=== PATIENT | female | born 1955 | race Caucasian/White ===

== ENCOUNTER 2023-08-13 11:54 | Observation (INO) | payer OTHER, MEDICARE ==
--- NOTE | 2023-08-13 12:53 | ED ---
Chest Pain HPI - General Source: patient, RN notes reviewed Mode of arrival: ambulatory Limitations: no limitations <Adam Pantoja - Last Filed: 08/13/23 12:52> - General Source: patient, RN notes reviewed Limitations: no limitations <Bartolo Benson - Last Filed: 08/13/23 18:16> - General Chief Complaint: Chest Pain Stated Complaint: Chest pain Time Seen by Provider: 08/13/23 12:52 - History of Present Illness Initial Comments: 68-year-old female sent emergency Department chief complaint of pressure in her upper chest, throat region. She states that started earlier this morning. She denies any significant cardiac history. She states she is able to eat and drink okay. Patient denies anything like this in the past denies any fevers or chills no cough or cold like symptoms. (Adam Pantoja) Patient is a pleasant 68-year-old female presenting to emergency department with concerns for upper chest/lower neck pressure. Onset of symptoms was around 9:30 this morning. Patient was having an emotionally upsetting phone call at the time. Discomfort lasted for hours and just recently started to improve, now resolved. No history of similar symptoms previously. No associated dyspnea, nausea, or diaphoresis. No leg pain or leg swelling. (Bartolo Benson) - Related Data Allergies Allergy/AdvReac Type Severity Reaction Status Date / Time No Known Allergies Allergy Verified 08/13/23 12:18 Review of Systems ROS Other: All systems not noted in ROS Statement are negative. <Adam Pantoja - Last Filed: 08/13/23 12:52> ROS Other: All systems not noted in ROS Statement are negative. Constitutional: Denies: fever Eyes: Denies: eye pain ENT: Reports: as per HPI. Denies: ear pain Respiratory: Denies: dyspnea Cardiovascular: Reports: as per HPI, chest pain Endocrine: Denies: fatigue Gastrointestinal: Denies: abdominal pain Genitourinary: Denies: urgency Musculoskeletal: Denies: back pain <Bartolo Benson - Last Filed: 08/13/23 18:16> ROS Statement: Those systems with pertinent positive or pertinent negative responses have been documented in the HPI. EKG Findings - EKG Results: EKG: interpreted by ERMD, sinus rhythm, normal axis, normal QRS, normal ST/T <Bartolo Benson - Last Filed: 08/13/23 18:16> Past Medical History Past Medical History: No Reported History History of Any Multi-Drug Resistant Organisms: None Reported Past Surgical History: No Surgical Hx Reported Past Psychological History: No Psychological Hx Reported Smoking Status: Former smoker Past Alcohol Use History: None Reported Past Drug Use History: None Reported <Adam Pantoja - Last Filed: 08/13/23 12:52> General Exam Limitations: no limitations <Adam Pantoja - Last Filed: 08/13/23 12:52> Limitations: no limitations General appearance: alert, in no apparent distress Head exam: Present: normocephalic Eye exam: Present: normal appearance ENT exam: Present: normal oropharynx Neck exam: Present: normal inspection Respiratory exam: Present: normal lung sounds bilaterally. Absent: stridor, chest wall tenderness Cardiovascular Exam: Present: regular rate, normal rhythm Expanded Peripheral pulses: 2+: Radial (R), Radial (L), Dorsalis Pedis (R), Dorsalis Pedis (L) GI/Abdominal exam: Present: soft. Absent: tenderness Extremities exam: Present: normal inspection. Absent: pedal edema, calf tenderness Neurological exam: Present: alert Psychiatric exam: Present: normal affect, normal mood Skin exam: Present: normal color <Bartolo Benson - Last Filed: 08/13/23 18:16> - General Exam Comments Initial Comments: Visual Physical Exam Vital signs reviewed General: Well-appearing, nontoxic, no acute distress. Head: Normocephalic, atraumatic Eyes: PERRLA, EOMI ENT: Airway patent Chest: Nonlabored breathing Skin: No visual rash, normal skin tone Neuro: Alert and oriented 3 Musculoskeletal: No gross abnormalities (Adam Pantoja) Course Vital Signs 08/13/23 08/13/23 08/13/23 12:19 14:49 14:55 Temperature 97.9 F Pulse Rate 111 H 70 Respiratory 16 20 20 Rate Blood Pressure 155/73 214/90 O2 Sat by Pulse 98 98 Oximetry 08/13/23 08/13/23 15:39 16:46 Temperature Pulse Rate 95 97 Respiratory 18 18 Rate Blood Pressure 194/106 189/101 O2 Sat by Pulse 96 95 Oximetry Chest Pain MDM <Adam Pantoja - Last Filed: 08/13/23 12:52> <Bartolo Benson - Last Filed: 08/13/23 18:16> - MDM I performed a quick note portion of this chart signed Adam BECERRA (Adam Pantoja) Was pt. sent in by a medical professional or institution (, [facility], [employer], urgent care, hospital, or intermediate...) When possible be specific @ -No Did you speak to anyone other than the patient for history (EMS, parent, family, police, friend...)? What history was obtained from this source @ -No Did you review nursing and triage notes (agree or disagree)? Why? @ -I reviewed and agree with nursing and triage notes Were old charts reviewed (outside hosp., previous admission, EMS record, old EKG, old radiological studies, urgent care reports/EKG's, intermediate records)? Report findings @ -No old charts were reviewed Differential Diagnosis (chest pain, altered mental status, abdominal pain women, abdominal pain men, vaginal bleeding, weakness, fever, dyspnea, syncope, headache, dizziness, GI bleed, back pain, seizure, CVA, palpatations, mental health, musculoskeletal)? @ -Differential Chest Pain: Stable Angina, Unstable Angina, STEMI, NSTEMI Aortic Dissection, Pneumothorax, Musculoskeletal, Esophageal Spasm GERD, Cholecystitis, Pancreatitis, Zoster, this is not meant to be an all-inclusive list. EKG interpreted by me (3pts min.). @ -As above X-rays interpreted by me (1pt min.). @ -Is x-ray shows no acute process CT interpreted by me (1pt min.). @ -CT chest without obvious embolism. Nodule. Questionable abdominal aorta changes U/S interpreted by me (1pt. min.). @ -None done What testing was considered but not performed or refused? (CT, X-rays, U/S, labs)? Why? @ -us abdominal aorta will be ordered What meds were considered but not given or refused? Why? @ -None Did you discuss the management of the patient with other professionals (professionals i.e. , [facility], [employer], lab, RT, psych nurse, social work associate, speech correction consultant, teacher, weapons officer, rn case manager hospice)? Give summary @ -Case was discussed with Dr. Stoll, who will admit covering hospital call. Was smoking cessation discussed for >3mins.? @ -No Was critical care preformed (if so, how long)? @ -No Were there social determinants of health that impacted care today? How? (Homelessness, low income, unemployed, alcoholism, drug addiction, transportation, low edu. Level, literacy, decrease access to med. care, senior care, rehab)? @ -No Was there de-escalation of care discussed even if they declined (Discuss DNR or withdrawal of care, Hospice)? DNR status @ -No What co-morbidities impacted this encounter? (DM, HTN, Smoking, COPD, CAD, C ancer, CVA, ARF, Chemo, Hep., AIDS, mental health diagnosis, sleep apnea, morbid obesity)? @ -None Was patient admitted / discharged? Hospital course, mention meds given and route, prescriptions, significant lab abnormalities, going to OR and other pertinent info. @ -Patient reevaluated and feeling better at this time. Patient did have some increase in chest discomfort that did improve symmetric question. Patient did have some dyspnea following computed tomography scan and was given medications with resolution of this. There is concern for ALLERGIC reaction to iodine dye. Patient updated regarding this. Patient will be admitted with cardiac consult. Admission orders written. Undiagnosed new problem with uncertain prognosis? @ -No Drug Therapy requiring intensive monitoring for toxicity (Heparin, Nitro, Insulin, Cardizem)? @ -No Were any procedures done? @ -No Diagnosis/symptom? @ -Chest pain, ALLERGIC reaction Acute, or Chronic, or Acute on Chronic? @ -Acute, acute Uncomplicated (without systemic symptoms) or Complicated (systemic symptoms)? @ -default Side effects of treatment? @ -No Exacerbation, Progression, or Severe Exacerbation? @ -No Poses a threat to life or bodily function? How? (Chest pain, USA, IA, pneumonia, PE, COPD, DKA, ARF, appy, cholecystitis, CVA, Diverticulitis, Homicidal, Suicidal, threat to staff... and all critical care pts) @ -No (Bartolo Benson) Disposition <Adam Pantoja - Last Filed: 08/13/23 12:52> Is patient prescribed a controlled substance at d/c from ED?: No Time of Disposition: 18:16 <Bartolo Benson - Last Filed: 08/13/23 18:16> Clinical Impression: Chest pain Disposition: ADMITTED IP TO THIS HOSP Referrals: None,Stated [Primary Care Provider] - 1-2 days
--- NOTE | 2023-08-13 13:41 | XR ---
EXAMINATION TYPE: XR chest 2V DATE OF EXAM: 08/13/2023 COMPARISON: 11/26/2011 CT HISTORY: 68-year-old female with chest pain TECHNIQUE: PA and lateral views FINDINGS: The cardiomediastinal silhouette, aorta, and pulmonary vasculature are within normal limits. Slight e ventration anterior right hemidiaphragm remains unchanged back to 2011. Lungs and pleural spaces are clear. IMPRESSION: No acute cardiopulmonary process.
[2023-08-13 15:00] LABS: Basophils % (A) 0 %; Eosinophils % (A) 0 %; HCT 44.1 % (34.0-46.0); HGB 14.2 gm/dL (11.4-16.0); Lymphocytes # (A) 4.1 k/uL (1.0-4.8); Lymphocytes % (A) 23 %; MCHC 32.3 g/dL (31.0-37.0); Mean Platelet Volume 7.8; Monocytes # (A) 0.8 k/uL (0-1.0); Monocytes % (A) 4 %; Neutrophils # (A) 12.8 k/uL (1.3-7.7); Neutrophils % (A) 72 %; Platelet Count 351 k/uL (150-450); RBC 4.91 m/uL (3.80-5.40); RDW 13.5 % (11.5-15.5); WBC 17.9 k/uL (3.8-10.6)
[2023-08-13] MEDS ORDERED: ASPIRIN 81 MG PO STA (15:03)
[2023-08-13 15:08] LABS: INR 0.9 (<1.2); Partial Thromboplastin Time 25.4 sec (22.0-30.0); Prothrombin Time 9.8 sec (10.0-12.5)
[2023-08-13 15:14] LABS: ALT 18 U/L (4-34); AST 18 U/L (14-36); African American GFR (CKD) >90 (>60 ml/min/1.73 sqM); Albumin 4.6 g/dL (3.5-5.0); Alkaline Phosphatase 105 U/L (38-126); Anion Gap 13 mmol/L; Blood Urea Nitrogen 13 mg/dL (7-17); Calcium 10.3 mg/dL (8.4-10.2); Carbon Dioxide 22 mmol/L (22-30); Chloride 105 mmol/L (98-107); Glucose 110 mg/dL (74-99); Magnesium 1.8 mg/dL (1.6-2.3); Non-African American GFR(CKD) 83 (>60 ml/min/1.73 sqM); Potassium 3.8 mmol/L (3.5-5.1); Sodium 140 mmol/L (137-145); Total Bilirubin 0.4 mg/dL (0.2-1.3); Total Protein 7.9 g/dL (6.3-8.2)
[2023-08-13 15:21] LABS: NT-Pro-B-Type Natriuretic Pept 162 pg/mL
[2023-08-13] MEDS: NITROGLYCERIN SL TABS 0.4 MG TAB SUBLINGUAL PRN ×3 (15:59→16:46)
[2023-08-13] MEDS ORDERED: methylPREDNISolone SOD SUCCI 125 MG/2 ML VIAL IV STA (17:12)
[2023-08-13] MEDS ORDERED: FAMOTIDINE 20 MG/2 ML VIAL IV STA (17:12)
[2023-08-13] MEDS ORDERED: diphenhydrAMINE 50 MG/ML 1 ML VIAL IVP STA (17:12)
--- NOTE | 2023-08-13 17:30 | CT ---
EXAMINATION TYPE: CT angio chest CT DLP: 384.8 mGycm, Automated exposure control for dose reduction was used. DATE OF EXAM: 08/13/2023 5:11 PM COMPARISON: CT 11/26/2011 CLINICAL INDICATION:Female, 68 years old with history of cp; chest pain TECHNIQUE/CONTRAST: CTA scan of the thorax is performed with IV Contrast, patient injected with 100 mL of Isovue 370, MIP images are created and reviewed these are created on a separate workstation.. FINDINGS: Pulmonary Artery: There is no evidence for a filling defect within the pulmonary vasculature to sugge st acute pulmonary embolism. The pulmonary artery is of normal size. Lungs/Pleura: No evidence of focal consolidation, pleural effusion or pneumothorax. Atelectasis withi n the left lung base lower lung versus small pulmonary nodule measuring 7 x 3 mm. Airway: Large airways are patent. Heart: Heart is mildly enlarged for size. There is moderate coronary artery atherosclerosis. Vasculature: No evidence of aortic aneurysm. Mediastinum: No gross evidence of adenopathy. Musculoskeletal: No acute osseous abnormalities, remote appearing left-sided rib fractures. Multileve l degeneration changes spine with osteophyte formation disc space narrowing. Soft Tissues: Unremarkable. Lower neck: No significant findings. Upper Abdomen: No significant findings. IMPRESSION: 1. 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 Consider ultrasound evaluation of the aorta throughout occlusion. 2. No evidence of pulmonary embolism. 3a. Left lower lung inferior lateral pulmonary nodule measuring 7 x 3 mm which is unchanged from 2012 and likely benign.
[2023-08-13] MEDS ORDERED: NITROGLYCERIN SL TABS 0.4 MG TAB SUBLINGUAL PRN (18:17)
--- NOTE | 2023-08-13 20:03 | US ---
EXAMINATION TYPE: US duplex aorta DATE OF EXAM: 08/13/2023 COMPARISON: CTA: Today CLINICAL INDICATION: Female, 68 years old with history of abnl ct; CT showing possible occlusion of a kiley TECHNIQUE: Multiple sonographic images of the abdominal aorta are obtained. FINDINGS: EXAM MEASUREMENTS: Abdominal Aorta: Proximal: 2.9 x 2.3 Mid: 2.4 x 2.5 Distal: 1.6 x 2.0 Bifurcation: Not well seen FLIGHT ENGINEER NOTES: There does appear to be plaque seen in the distal portion of the aorta, with minim al blood flow. There is no dilatation. IMPRESSION: Findings are thought to confirm that there is occlusion of the distal aorta. Multiple collaterals are seen on the same day CTA along the anterior abdominal wall. Vascular surgical consultation recommend ed.
[2023-08-13] MEDS: NITROGLYCERIN OINT 1 INCH/GM PACKET TOPICAL SCH (23:43)
--- NOTE | 2023-08-14 00:01 | P.HPIM ---
History of Present Illness H&P Date: 08/13/23 Patient is a 68-year-old female with a PMH of COPD, who hasn't seen a physician for the past several years, presents to the emergency room with complaints of upper chest discomfort and shortness of breath. The patient notes that she has had a lifelong lower neck and upper chest discomfort of occasional choking and shortness of breath for which she has seen multiple physicians previously. She notes however that the discomfort acutely worsened earlier today which prompted her to come to the emergency room. She denied experiencing fever, chills, cough, nausea, vomiting, abdominal pain, diarrhea. Reports a history of mild COPD for which she does not take any inhalers. She also denied experiencing lower extremity pain or weakness. In the emergency room a chest CTA revealed findings concerning for occlusion of the abdominal aorta with a left lower lung pulmonary nodule unchanged for the past 11 years and suspected benign with no evidence for pulmonary embolism. A follow-up vascular aortic ultrasound revealed an occlusion of the distal aorta with multiple collaterals with a vascular surgical consultation recommended. Laboratory evaluation was remarkable for troponin less than 0.012 and d-dimer 0.74 with WBC count 17.9. ED documentation reviewed and case discussed with ED provider. Review of systems: Pertinent positives and negatives as discussed in HPI, a complete review of systems was performed and all other systems are negative. Physical examination: Vital signs reviewed General: non toxic, no distress, appears at stated age, overweight Derm: no unusual rashes/lesions, warm Head: atraumatic, normocephalic, symmetric Eyes: EOMI, no lid lag, anicteric sclera, pupils equal round reactive to light ENT: Nose and ears atraumatic Neck: No cervical lymphadenopathy, trachea midline, supple Mouth: no lip lesion, mucus membranes moist Cardiovascular: S1S2 reg, no murmur, scant bilateral dorsalis pedis and popliteal pulses, warm feet, unable to assess capillary refill and feet due to onychomycosis, no edema Lungs: CTA bilateral, no rhonchi, no rales, no accessory muscle use Abdominal: soft, nontender to palpation, no guarding Ext: muscle strength 5 out of 5 in all 4 extremities grossly, no gross muscle atrophy, no contractures, Neuro: CN II-XI grossly intact, no gross focal neuro deficits Psych: Alert, oriented, appropriate affect Assessment: Chest pain, rule out ACS Aortic occlusion Leukocytosis, no sign of active infection at this time Imaging: In the emergency room a chest CTA revealed findings concerning for occlusion of the abdominal aorta with a left lower lung pulmonary nodule unchanged for the past 11 years and suspected benign with no evidence for pulmonary embolism. A follow-up vascular aortic ultrasound revealed an occlusion of the distal aorta with multiple collaterals with a vascular surgical consultation recommended. Data Review: Laboratory evaluation was remarkable for troponin less than 0.012 and d-dimer 0.74 with WBC count 17.9. Plan: Case reportedly discussed by ED provider with vascular surgery on consult who felt that the patient's occlusion is very likely chronic with no intervention recommended at this time Cardiology consulted Cardiac monitoring Trend troponin Continue with aspirin and statin. DVT prophylaxis: Lovenox subcu The patient is admitted with an anticipated less than 2 midnight stay for evaluation of chest pain CODE STATUS: Full Code Discussed with: Patient Anticipated discharge place: Home Past Medical History Past Medical History: No Reported History History of Any Multi-Drug Resistant Organisms: None Reported Past Surgical History: No Surgical Hx Reported Past Psychological History: No Psychological Hx Reported Smoking Status: Former smoker Past Alcohol Use History: None Reported Past Drug Use History: None Reported Medications and Allergies Home Medications Medication Instructions Recorded Confirmed Type Fexofenadine HCl [Sonia Allergy] 180 mg PO DAILY 08/13/23 08/13/23 History guaiFENesin-DM 600/30MG [Mucinex 1 tab PO Q12HR 08/13/23 08/13/23 History Dm] Allergies Allergy/AdvReac Type Severity Reaction Status Date / Time No Known Allergies Allergy Verified 08/13/23 20:37 Physical Exam Vitals: Vital Signs Temp Pulse Resp BP Pulse Ox 08/13/23 23:30 73 20 169/82 95 08/13/23 23:00 89 18 154/81 96 08/13/23 22:00 84 18 170/75 96 08/13/23 21:00 80 18 169/76 98 08/13/23 20:06 93 18 150/105 97 08/13/23 19:00 82 18 181/87 98 08/13/23 18:00 78 20 169/87 99 08/13/23 17:00 90 18 193/97 97 08/13/23 16:46 97 18 189/101 95 08/13/23 16:30 95 18 205/94 98 08/13/23 15:39 95 18 194/106 96 08/13/23 14:55 20 08/13/23 14:49 70 20 214/90 98 08/13/23 12:19 97.9 F 111 H 16 155/73 98 Intake and Output 08/13/23 08/13/23 08/14/23 14:59 22:59 06:59 Other: Weight 70.307 kg Results CBC & Chem 7: 08/13/23 12:52 08/13/23 12:52 Labs: Abnormal Lab Results - Last 24 Hours (Table) 08/13/23 08/13/23 08/13/23 Range/Units 12:52 12:52 12:52 WBC 17.9 H (3.8-10.6) k/uL Neutrophils # 12.8 H (1.3-7.7) k/uL PT 9.8 L (10.0-12.5) sec D-Dimer (<0.60) mg/L FEU Glucose 110 H (74-99) mg/dL Calcium 10.3 H (8.4-10.2) mg/dL 08/13/23 Range/Units 12:52 WBC (3.8-10.6) k/uL Neutrophils # (1.3-7.7) k/uL PT (10.0-12.5) sec D-Dimer 0.74 H (<0.60) mg/L FEU Glucose (74-99) mg/dL Calcium (8.4-10.2) mg/dL
[2023-08-14] MEDS: ATORVASTATIN 80 MG TAB PO SCH ×2 (00:25→19:59)
[2023-08-14] MEDS: NITROGLYCERIN OINT 1 INCH/GM PACKET TOPICAL SCH ×3 (06:16→18:56)
[2023-08-14] MEDS: ENOXAPARIN 40 MG/0.4 ML SYRINGE SQ SCH (08:11)
[2023-08-14] MEDS: ASPIRIN 81 MG PO SCH (08:11)
[2023-08-14] MEDS: LISINOPRIL-HCTZ 10-12.5 MG 1 EACH TAB PO SCH (08:45)
[2023-08-14] MEDS ORDERED: ASPIRIN 325 MG TAB PO SCH (09:00)
--- NOTE | 2023-08-14 09:33 | P.CRDCN ---
History of Present Illness Consult date: 08/14/23 Chief complaint: Chest discomfort History of present illness: This is a 68-year-old female patient with a past medical history significant for history of smoking and possibly hypertension. The patient never seen a physician in long time. She presented to the hospital complaining of chest discomfort started when she was talking to her daughter on the phone. The discomfort was in the middle of the chest as a dull with no radiation to the ar ms or neck or shoulders or back tawny seated symptoms of shortness of breath or dizziness or any feeling of heart racing or fluttering or presyncope or syncope. The discomfort lasted only for a few seconds. Beside that she reports no chest discomfort with exertion. She underwent further workup including troponin came in to be unremarkable and EKG showed sinus mechanism. Please note that her pres sure has been elevated and consistent was hypertension crisis. She was started on losartan hydrochlorothiazide combination. She is a slightly tachycardic and for that reason I'm going to add carvedilol to the current medical regimen. The computed tomography scan of the chest did not show any evidence off acute abnormalities but it did show possible occluded infrarenal aorta and currently she is undergoing investigation for that. Examination is remarkable for regular rhythm with a tachycardia and clear breathing sounds bilaterally and no lower extremity is edema and no pulses identified in the pedal arteries and also I hear a right carotid bruit Assessment Hypertension emergency Chest discomfort secondary to hypertension emergency. Severe CAD to be ruled out Peripheral arterial disease as described above History of smoking Plan Acute coronary event was ruled out Consider obtaining a stress test once the pressure improved and consider ruling out severe CAD Add carvedilol to the current medical regimen Further workup regarding the PAD Obtain an echocardiogram with Doppler Follow-up with the patient Past Medical History Past Medical History: No Reported History History of Any Multi-Drug Resistant Organisms: None Reported Past Surgical History: No Surgical Hx Reported Past Psychological History: No Psychological Hx Reported Smoking Status: Former smoker Past Alcohol Use History: None Reported Past Drug Use History: None Reported Medications and Allergies Home Medications Medication Instructions Recorded Confirmed Type Fexofenadine HCl [Sonia Allergy] 180 mg PO DAILY 08/13/23 08/13/23 History guaiFENesin-DM 600/30MG [Mucinex 1 tab PO Q12HR 08/13/23 08/13/23 History Dm] Allergies Allergy/AdvReac Type Severity Reaction Status Date / Time No Known Allergies Allergy Verified 08/13/23 20:37 Physical Exam Vitals: Vital Signs Temp Pulse Pulse Resp BP BP Pulse Ox 08/14/23 08:00 98 F 103 H 18 190/89 97 08/14/23 06:16 90 18 175/82 94 L 08/14/23 04:23 101 H 08/14/23 03:28 77 16 161/93 94 L 08/14/23 02:00 104 H 16 183/93 94 L 08/14/23 01:00 91 18 160/84 96 08/14/23 00:30 83 168/82 94 L 08/14/23 00:00 80 18 169/79 96 08/13/23 23:30 73 20 169/82 95 08/13/23 23:00 89 18 154/81 96 08/13/23 22:00 84 18 170/75 96 08/13/23 21:00 80 18 169/76 98 08/13/23 20:06 93 18 150/105 97 08/13/23 19:00 82 18 181/87 98 08/13/23 18:00 78 20 169/87 99 08/13/23 17:00 90 18 193/97 97 08/13/23 16:46 97 18 189/101 95 08/13/23 16:30 95 18 205/94 98 08/13/23 15:39 95 18 194/106 96 08/13/23 14:55 20 08/13/23 14:49 70 20 214/90 98 08/13/23 12:19 97.9 F 111 H 16 155/73 98 Results 08/13/23 12:52 08/13/23 12:52 Cardiac Enzymes 08/13/23 08/13/23 08/13/23 Range/Units 12:52 12:52 18:34 AST 18 (14-36) U/L Troponin I <0.012 <0.012 (0.000-0.034) ng/mL 08/13/23 Range/Units 21:59 AST (14-36) U/L Troponin I <0.012 (0.000-0.034) ng/mL Coagulation 08/13/23 Range/Units 12:52 PT 9.8 L (10.0-12.5) sec APTT 25.4 (22.0-30.0) sec CBC 08/13/23 Range/Units 12:52 WBC 17.9 H (3.8-10.6) k/uL RBC 4.91 (3.80-5.40) m/uL Hgb 14.2 (11.4-16.0) gm/dL Hct 44.1 (34.0-46.0) % Plt Count 351 (150-450) k/uL Comprehensive Metabolic Panel 08/13/23 Range/Units 12:52 Sodium 140 (137-145) mmol/L Potassium 3.8 (3.5-5.1) mmol/L Chloride 105 (98-107) mmol/L Carbon Dioxide 22 (22-30) mmol/L BUN 13 (7-17) mg/dL Creatinine 0.76 (0.52-1.04) mg/dL Glucose 110 H (74-99) mg/dL Calcium 10.3 H (8.4-10.2) mg/dL AST 18 (14-36) U/L ALT 18 (4-34) U/L Alkaline Phosphatase 105 (38-126) U/L Total Protein 7.9 (6.3-8.2) g/dL Albumin 4.6 (3.5-5.0) g/dL Current Medications Generic Name Dose Route Start Last Admin Trade Name Freq PRN Reason Stop Dose Admin Aspirin 81 mg 08/14/23 09:00 08/14/23 08:11 Aspirin 81 Mg PO 81 mg DAILY BRIDGETT Administration Atorvastatin Calcium 80 mg 08/14/23 00:00 08/14/23 00:25 Atorvastatin 80 Mg Tab PO 80 mg HS BRIDGETT Administration Enoxaparin Sodium 40 mg 08/14/23 09:00 08/14/23 08:11 Enoxaparin 40 Mg/0.4 Ml Syringe SQ 40 mg DAILY BRIDGETT Administration Lisinopril/HCTZ 1 each 08/14/23 09:00 08/14/23 08:45 Lisinopril-Hctz 10-12.5 Mg 1 Each Tab PO 1 each DAILY BRIDGETT Administration Nitroglycerin 0.4 mg 08/13/23 15:49 08/13/23 16:46 Nitroglycerin Sl Tabs 0.4 Mg Tab SUBLINGUAL 0.4 mg Q5M PRN Administration Chest Pain Nitroglycerin 1 inch 08/14/23 00:00 11/22/23 06:16 Nitroglycerin Oint 1 Inch/Gm Packet TOPICAL 1 inch Q6HR BRIDGETT Administration 08/13/23 12:52 08/13/23 12:52
[2023-08-14] MEDS: carvediloL 3.125 MG TAB PO SCH (09:47)
--- NOTE | 2023-08-14 09:49 | US ---
EXAMINATION TYPE: US arterial LE multi level DATE OF EXAM: 08/14/2023 7:49 AM CLINICAL INDICATION: Female, 68 years old with history of in am, occlusion; Occlusion. History of: Smoker: Previous Hypertension: No Diabetic: No Hyperlipidemia: No TIA/CVA: No Previous Vascular Surgery: No CAD: No CT: No Vascular Ulcers: None Claudication: No Gangrene: No Doppler Waveforms: Right: Biphasic Left: Biphasic Right Brachial Pressure: 204 Left Brachial Pressure: Not performed due to IV. Ankle-Brachial Indices: Right: 0.34 Left: 0.33 Toe Brachial Indices: Right: 0.21 Left: 0.15 IMPRESSION: Severe bilateral peripheral vascular disease by ankle brachial indices.
[2023-08-14 11:07] LABS: Chol/HDL Ratio 5.19 Ratio; LDL Cholesterol,Calculated 139.5 mg/dL (0.0-131.0)
--- NOTE | 2023-08-14 16:03 | P.GSCN ---
History of Present Illness Consult date: 08/14/23 History of present illness: Patient is a 68 year old female who presented to the ER due to concerns or complaints of having a feeling of someone choking her and cutting off her breathing. He discomfort was noted to be in the chest itself. Further workup was performed including computed tomography scan of the chest and in doing so was found to have infrarenal abdominal aortic occlusion. We will consult in this regard. The patient denies any lower extremity pain. She states typically she is able to ambulate without concern, occasionally she gets lower extremity pain but this is not routine. Overall she would say she has no complaints about her lower extremities. Past Medical History Past Medical History: No Reported History History of Any Multi-Drug Resistant Organisms: None Reported Past Surgical History: No Surgical Hx Reported Past Psychological History: No Psychological Hx Reported Smoking Status: Former smoker Past Alcohol Use History: None Reported Past Drug Use History: None Reported Medications and Allergies Home Medications Medication Instructions Recorded Confirmed Type Fexofenadine HCl [Sonia Allergy] 180 mg PO DAILY 08/13/23 08/13/23 History guaiFENesin-DM 600/30MG [Mucinex 1 tab PO Q12HR 08/13/23 08/13/23 History Dm] Allergies Allergy/AdvReac Type Severity Reaction Status Date / Time No Known Allergies Allergy Verified 08/13/23 20:37 Surgical - Exam Vital Signs Temp Pulse Resp BP Pulse Ox 97.9 F 111 H 16 155/73 98 08/13/23 12:19 08/13/23 12:19 08/13/23 12:19 08/13/23 12:19 08/13/23 12:19 Physical is a pleasant cooperative female in no acute distress. Normocephalic, atraumatic, extraocular motion intact. Heart appears regular. Lungs are clear. Abdomen is soft. Extremity show no clubbing, cyanosis or edema. No palpable pedal pulses. Bilateral lower excision was are warm. Mildly delayed capillary refill. No wounds Results Imaging is reviewed, CT of the chest is reviewed. There is occlusion of the infrarenal abdominal aorta at the level of the renal takeoff bilaterally. This is consistent with the aortoiliac ultrasound. On lower extremity arterial Doppler KANIKA bilaterally of 0.3 with essentially biphasic appearing waveforms - Labs 08/13/23 12:52 08/13/23 12:52 Abnormal Lab Results - Last 24 Hours (Table) 08/13/23 Range/Units 12:52 Triglycerides 219.00 H (0.00-149.00) mg/dL Cholesterol 227.00 H (0.00-200.00) mg/dL LDL Cholesterol, Calc 139.5 H (0.0-131.0) mg/dL VLDL Cholesterol, Calc 43.80 H (5.00-40.00) mg/dL Diabetes panel 08/13/23 Range/Units 12:52 Triglycerides 219.00 H (0.00-149.00) mg/dL HDL Cholesterol 43.70 (40.00-60.00) mg/dL Assessment and Plan Assessment: Distal aortic occlusion, chronic Plan: On exertion was had with the patient guarding the results and findings. At this time there is nothing acute causing concern for need for intervention. Discussed that as an outpatient we may go forward with further evaluation and workup, if patient has reviewed changes, would recommend CT angiogram with tameka ateral lower extremities with runoffs however this time it is unnecessary given patient is asymptomatic and findings are all consistent with chronic occlusion. Her extremities appear relatively well perfused and are warm. We'll plan to see her as an outpatient.
--- NOTE | 2023-08-14 16:32 | P.PN ---
Subjective Progress Note Date: 08/14/23 Hospital Course: 68-year-old female with a PMH of COPD, who hasn't seen a physician for the past several years, presents to the emergency room with complaints of upper chest discomfort and shortness of breath. In the emergency room a chest CTA revealed findings concerning for occlusion of the abdominal aorta with a left lower lung pulmonary nodule unchanged for the past 11 years and suspected benign with no evidence for pulmonary embolism. A follow-up vascular aortic ultrasound rev ealed an occlusion of the distal aorta with multiple collaterals with a vascular surgical consultation recommended. Laboratory evaluation was remarkable for troponin less than 0.012 and d-dimer 0.74 with WBC count 17.9. Cardiology consulted. Subjective: Patient seen and examined at bedside. No acute events overnight. She is slightly hypertensive. Pertinent positives and negatives as discussed above, a complete review of systems was performed and all other systems are negative. Vitals Signs Reviewed. General: nontoxic, no distress, appears at stated age Derm: warm, dry Head: atraumatic, normocephalic, symmetric Eyes: EOMI, no lid lag, anicteric sclera Mouth: no lip lesion, mucus membranes moist Cardiovascular: S1S2 reg, no murmur Lungs: CTA bilateral, no rhonchi, no rales , no accessory muscle use Abdominal: soft, nontender to palpation, no guarding, no appreciable organomeg ramos Ext: no gross muscle atrophy, no edema, no contractures Neuro: CN II-XI grossly intact, no focal neuro deficits Psych: Alert, oriented, appropriate affect Data Reviewed Today: Pertinent Labs: Troponin negative 3, LDL 139, total cholesterol 227 Imaging: Lower extremity Dopplers shows peripheral vascular disease severe bilaterally Assessment and Plan: Atypical chest discomfort Dyspnea Chronic aortic occlusion Leukocytosis Severe peripheral arterial disease Hypertension Dyslipidemia -Cardiology note reviewed, recommending stress test and echocardiogram -Patient started on aspirin 81 mg, atorvastatin 80 mg, carvedilol 3.125 daily, lisinopril and hydrochlorothiazide -Vascular surgery note reviewed, outpatient follow-up for aortic occlusion and severe peripheral arterial disease -Repeat CBC tomorrow DVT ppx: Lovenox Code status: Full code Anticipated discharge place: Pending clinical course Anticipated discharge time: Pending clinical course Objective - Vital Signs Vital signs: Vital Signs Temp 98 F 08/14/23 08:00 Pulse 92 08/14/23 15:50 Resp 16 08/14/23 15:50 BP 182/76 08/14/23 15:50 Pulse Ox 96 08/14/23 15:50 FiO2 Intake & Output 08/13/23 08/14/23 08/14/23 18:59 06:59 18:59 Intake Total 540 Balance 540 Weight 70.307 kg Intake: Oral 540 Other: # Voids 4 - Labs CBC & Chem 7: 08/13/23 12:52 08/13/23 12:52 Labs: Abnormal Lab Results - Last 24 Hours (Table) 08/13/23 Range/Units 12:52 Triglycerides 219.00 H (0.00-149.00) mg/dL Cholesterol 227.00 H (0.00-200.00) mg/dL LDL Cholesterol, Calc 139.5 H (0.0-131.0) mg/dL VLDL Cholesterol, Calc 43.80 H (5.00-40.00) mg/dL
[2023-08-15] MEDS: NITROGLYCERIN OINT 1 INCH/GM PACKET TOPICAL SCH ×2 (01:08→05:30)
[2023-08-15 06:10] LABS: Basophils # (A) 0.1 k/uL (0-0.2); Basophils % (A) 0 %; Eosinophils # (A) 0.1 k/uL (0-0.7); Eosinophils % (A) 1 %; HCT 45.6 % (34.0-46.0); HGB 14.9 gm/dL (11.4-16.0); Lymphocytes # (A) 4.9 k/uL (1.0-4.8); Lymphocytes % (A) 27 %; MCH 29.7 pg (25.0-35.0); MCHC 32.7 g/dL (31.0-37.0); MCV 90.7 fL (80.0-100.0); Mean Platelet Volume 8.1; Monocytes % (A) 6 %; Neutrophils # (A) 12.1 k/uL (1.3-7.7); Neutrophils % (A) 66 %; Platelet Count 343 k/uL (150-450); RBC 5.03 m/uL (3.80-5.40); WBC 18.4 k/uL (3.8-10.6)
[2023-08-15 06:29] LABS: ALT 18 U/L (4-34); AST 33 U/L (14-36); African American GFR (CKD) 83 (>60 ml/min/1.73 sqM); Albumin 4.3 g/dL (3.5-5.0); Albumin/Globulin Ratio 1.3; Alkaline Phosphatase 98 U/L (38-126); Anion Gap 12 mmol/L; Blood Urea Nitrogen 21 mg/dL (7-17); Calcium 9.9 mg/dL (8.4-10.2); Carbon Dioxide 22 mmol/L (22-30); Chloride 103 mmol/L (98-107); Globulin 3.3 g/dL; Glucose 111 mg/dL (74-99); Non-African American GFR(CKD) 72 (>60 ml/min/1.73 sqM); Potassium 3.9 mmol/L (3.5-5.1); Sodium 137 mmol/L (137-145); Total Bilirubin 0.6 mg/dL (0.2-1.3); Total Protein 7.6 g/dL (6.3-8.2)
[2023-08-15 07:51] VITALS: BP 137/70; RESP 16; TEMP 98
[2023-08-15] MEDS: LISINOPRIL-HCTZ 10-12.5 MG 1 EACH TAB PO SCH (08:18)
[2023-08-15] MEDS: ENOXAPARIN 40 MG/0.4 ML SYRINGE SQ SCH (08:18)
[2023-08-15] MEDS: ASPIRIN 81 MG PO SCH (08:18)
[2023-08-15] MEDS: carvediloL 3.125 MG TAB PO SCH (08:18)
[2023-08-15 09:30] VITALS: PULSE 88
--- NOTE | 2023-08-15 10:53 | P.PN ---
Subjective Progress Note Date: 08/15/23 Principal diagnosis: Chest pain This is a 68-year-old female patient with a past medical history significant for history of smoking and possibly hypertension. The patient never seen a physician in long time. She presented to the hospital complaining of chest discomfort started when she was talking to her daughter on the phone. The discomfort was in the middle of the chest as a dull with no radiation to the arms or neck or shoulders or back tawny seated symptoms of shortness of breath or dizziness or any feeling of heart racing or fluttering or presyncope or syncope. The discomfort lasted only for a few seconds. Beside that she reports no chest discomfort with exertion. She underwent further workup including troponin came in to be unremarkable and EKG showed sinus mechanism. Please note that her pressure has been elevated and consistent was hypertension crisis. She was started on losartan hydrochlorothiazide combination. She is a slightly tachycardic and for that reason I'm going to add carvedilol to the current medical regimen. The computed tomography scan of the chest did not show any evidence off acute abnormalities but it did show possible occluded infrarenal aorta and currently she is undergoing investigation for that. Examination is remarkable for regular rhythm with a tachycardia and clear breathing sounds bilaterally and no lower extremity is edema and no pulses identified in the pedal arteries and also I hear a right carotid bruit August [id number] The patient was seen and evaluated this morning which is chest pain-free. The pressure has been under better control on the current medical regimen including lisinopril/heart I as well as carvedilol. The aortic occlusion has been addressed by the vascular surgery service. A stress sestamibi to be done but unfortunately can't be done over the weekend/0.8. From the cardiovascular s tandpoint of view, the patient potentially can be discharged home and she will be seen in the office for further cardiac workup. Examination is remarkable for regular rhythm with clear breathing sounds bilaterally and no edema in the lower extremities Assessment Hypertension emergency Chest discomfort secondary to hypertension emergency. Severe CAD to be ruled out Peripheral arterial disease as described above History of smoking Plan Acute coronary event was ruled out The patient can be discharged home Objective - Vital Signs Vital signs: Vital Signs Temp 98.0 F 08/15/23 07:05 Pulse 88 08/15/23 08:00 Resp 16 08/15/23 08:00 BP 137/70 08/15/23 07:05 Pulse Ox 98 08/15/23 07:48 FiO2 Intake & Output 08/14/23 08/15/23 08/15/23 18:59 06:59 18:59 Intake Total 540 Balance 540 Weight 70.307 kg Intake: Oral 540 Other: # Voids 4 1 - Labs CBC & Chem 7: 08/15/23 05:53 08/15/23 05:53 Labs: Abnormal Lab Results - Last 24 Hours (Table) 08/13/23 08/15/23 08/15/23 Range/Units 12:52 05:53 05:53 WBC 18.4 H (3.8-10.6) k/uL Neutrophils # 12.1 H (1.3-7.7) k/uL Lymphocytes # 4.9 H (1.0-4.8) k/uL BUN 21 H (7-17) mg/dL Glucose 111 H (74-99) mg/dL Triglycerides 219.00 H (0.00-149.00) mg/dL Cholesterol 227.00 H (0.00-200.00) mg/dL LDL Cholesterol, Calc 139.5 H (0.0-131.0) mg/dL VLDL Cholesterol, Calc 43.80 H (5.00-40.00) mg/dL
--- NOTE | 2023-08-15 11:40 | P.DS ---
Providers Date of admission: 08/13/23 18:18 Expected date of discharge: 08/15/23 Attending physician: Tristen Issa MD Consults: 08/13/23 18:17 Consult Physician Urgent Consulting Provider: Jean Thayer Consult Reason/Comments: cp Do you want consulting provider notified?: Yes 08/13/23 21:06 Consult Physician Urgent Consulting Provider: Saravanan Burrows Consult Reason/Comments: arterial occlusion Do you want consulting provider notified?: Already Contacted Primary care physician: Stated None Hospital Course: Discharge Diagnosis: Atypical chest discomfort Dyspnea Chronic aortic occlusion Leukocytosis Severe asymptomatic peripheral arterial disease Hypertension Dyslipidemia Former smoker Hospital Course: 68-year-old female with a PMH of COPD, who hasn't seen a physician for the past several years, presents to the emergency room with complaints of upper chest discomfort and shortness of breath. In the emergency room a chest CTA revealed findings concerning for occlusion of the abdominal aorta with a left lower lung pulmonary nodule unchanged for the past 11 years and suspected benign with no evidence for pulmonary embolism. A follow-up vascular aortic ultrasound revealed an occlusion of the distal aorta with multiple collaterals with a vascular surgical consultation recommended. Risk for surgery recommending outpatient follow-up Laboratory evaluation was remarkable for troponin less than 0.012 and d-dimer 0.74 with WBC count 17.9. Cardiology consulted. Chest pain has resolved. ACS ruled out. Outpatient follow-up with cardiology. She also has neutrophilic predominant leukocytosis, will need follow-up outpatient. No acute signs or symptoms of infection. Patient seen and examined at bedside. Vital signs reviewed and stable. General: nontoxic, no distress, appears at stated age Derm: warm, dry Head: atraumatic, normocephalic, symmetric Eyes: EOMI, no lid lag, anicteric sclera Mouth: no lip lesion, mucus membranes moist Cardiovascular: S1S2 reg, no murmur Lungs: CTA bilateral, no rhonchi, no rales , no accessory muscle use Abdominal: soft, nontender to palpation, no guarding, no appreciable organomegaly Ext: no gross muscle atrophy, no edema, no contractures Neuro: CN II-XI grossly intact, no focal neuro deficits Psych: Alert, oriented, appropriate affect A total of 36 minutes of time were spent preparing this complex discharge summary. Patient was discharged on 08/15/23 at 1139. Patient Condition at Discharge: Stable Plan - Discharge Summary New Discharge Prescriptions: New carvediloL [Coreg] 3.125 mg PO DAILY #60 tab Aspirin [Adult Low Dose Aspirin EC] 81 mg PO DAILY #90 tab Atorvastatin [Lipitor] 80 mg PO HS #60 tab Lisinopril-Hctz 10-12.5 mg [Zestoretic 10-12.5] 1 each PO DAILY #60 tab Continue guaiFENesin-DM 600/30MG [Mucinex Dm] 1 tab PO Q12HR Fexofenadine HCl [Sonia Allergy] 180 mg PO DAILY Discharge Medication List Fexofenadine HCl [Sonia Allergy] 180 mg PO DAILY 08/13/23 [History] guaiFENesin-DM 600/30MG [Mucinex Dm] 1 tab PO Q12HR 08/13/23 [History] Aspirin [Adult Low Dose Aspirin EC] 81 mg PO DAILY #90 tab 08/15/23 [Rx] Atorvastatin [Lipitor] 80 mg PO HS #60 tab 08/15/23 [Rx] Lisinopril-Hctz 10-12.5 mg [Zestoretic 10-12.5] 1 each PO DAILY #60 tab 08/15/23 [Rx] carvediloL [Coreg] 3.125 mg PO DAILY #60 tab 08/15/23 [Rx] Follow up Appointment(s)/Referral(s): Jean Thayer MD [STAFF PHYSICIAN] - 1 Week Tamiko Andrade DO [STAFF PHYSICIAN] - 1 Week None,Stated [Primary Care Provider] - 1-2 days Patient Instructions/Handouts: Chest Pain (DC), Peripheral Vascular Disease (DC), Chronic Hypertension (DC), Hyperlipidemia (DC), Mediterranean Diet (DC) Activity/Diet/Wound Care/Special Instructions: Please see PCP, cardiology, and vascular surgery. Discharge Disposition: HOME SELF-CARE
--- NOTE | 2023-08-15 14:04 | CA ---
Transthoracic Echo Report Name: Breanne Madrigal Age: 68 Gender: F : 1955 Exam Date: 08/14/2023 14:01 Exam Location: [facility] Ht (in): 64 Wt (lb): 155 Ordering Physician: Jean Thayer MD ([id number]) Attending/Referring Phys: Manager Mobile Pamela Matthews RDCS Procedure CPT: Indications: Chest Pain Cardiac Hx: Technical Quality: Fair Contrast 1: Total Dose (mL): Contrast 2: Total Dose (mL): MEASUREMENTS (Male / Female) Normal Values 2D ECHO LV Diastolic Diameter PLAX 2.8 cm 4.2 - 5.9 / 3.9 - 5.3 cm LV Systolic Diameter PLAX 2.2 cm IVS Diastolic Thickness 1.4 cm 0.6 - 1.0 / 0.6 - 0.9 cm LVPW Diastolic Thickness 1.4 cm 0.6 - 1.0 / 0.6 - 0.9 cm LV Relative Wall Thickness 1.0 RV Internal Dim ED PLAX 2.8 cm LA Volume 30.3 cm??? 18 - 58 / 22 - 52 cm??? LA Volume Index 16.9 cm???/m??? 16 - 28 cm???/m??? M-MODE Aortic Root Diameter MM 3.0 cm LA Systolic Diameter MM 2.9 cm LA Ao Ratio MM 1.0 AV Cusp Separation MM 1.4 cm DOPPLER AV Peak Velocity 127.9 cm/s AV Peak Gradient 6.5 mmHg AV Mean Velocity 84.6 cm/s AV Mean Gradient 3.2 mmHg AV Velocity Time Integral 24.2 cm LVOT Peak Velocity 89.6 cm/s LVOT Peak Gradient 3.2 mmHg LVOT Velocity Time Integral 19.5 cm MV Area PHT 4.8 cm??? Mitral E Point Velocity 53.5 cm/s Mitral A Point Velocity 102.3 cm/s Mitral E to A Ratio 0.5 MV Deceleration Time 157.9 ms MV E' Velocity 5.9 cm/s Mitral E to MV E' Ratio 9.1 FINDINGS Left Ventricle Moderately increased left ventricular wall thickness. Left ventricular cavity size normal. Normal left ventricular systolic function with no obvious regional wall motion abnormalities. Left ventricular ejection fraction is estimated at 55-60 %. Right Ventricle Normal right ventricular size and function. Right ventricular systolic pressure within normal limits. Right Atrium Normal right atrial size. Left Atrium Normal left atrial size. Mitral Valve Mild mitral annular calcification. Trace to mild mitral regurgitation. Aortic Valve Trileaflet aortic valve. No aortic valve stenosis or regurgitation. Tricuspid Valve Structurally normal tricuspid valve. Trace to mild tricuspid regurgitation. Pulmonic Valve Trace pulmonic regurgitation. Pericardium No pericardial effusion. Aorta Normal size aortic root and proximal ascending aorta. CONCLUSIONS Technically difficult study Normal LV systolic function Previewed by: Dr. Jean Thayer MD (Electronically Signed) Final Date: 15 August 2023 14:03
== END 2023-08-15 12:51 | disposition home or self-care (01) ==
LOC: EC 11:54 → 6NMEDSUR 18:18 → 3SCARD 20:43 → 5NMEDONC 08-14 10:11 → 4SSUR 08-14 15:26 → 6NMEDSUR 08-14 15:45
PROVIDERS: ADMIT Family Medicine; ATTEND Family Medicine
DX: R07.89 Other chest pain (principal); I16.1 Hypertensive emergency; J44.9 Chronic obstructive pulmonary disease, unspecified; I70.0 Atherosclerosis of aorta; I73.9 Peripheral vascular disease, unspecified; R00.0 Tachycardia, unspecified; I10 Essential (primary) hypertension; E78.5 Hyperlipidemia, unspecified; R91.1 Solitary pulmonary nodule; D72.829 Elevated white blood cell count, unspecified; Z79.899 Other long term (current) drug therapy; Z87.891 Personal history of nicotine dependence
CPT/HCPCS: 96372 ×2; 96374; 96375; 99285; 36415; 94760; 93005 ×2; 93306; 85379; 83880; 80061; 80053 ×2; 83735; 84484; 85025 ×2; 85610; 85730; 71046; 93923; 93979; 71275; G0378 ×6; J1200; J2930; J1650 ×2; J3490; Q9967

== ENCOUNTER 2024-01-10 13:30 | Emergency (ER) | payer MEDICARE, OTHER ==
--- NOTE | 2024-01-10 14:15 | ED ---
Fall HPI - General Chief Complaint: Fall Stated Complaint: Fall on thinner-R ankle injury Time Seen by Provider: 01/10/24 14:13 Source: patient Mode of arrival: wheelchair Limitations: physical limitation - History of Present Illness Initial Comments: 68-year-old female presenting to the ER with chief complaint of a fall. Patient states she was taking out her trash downstairs last night and accidentally missed a step. She states her right ankle went behind her and she landed on her right knee. She is endorsing pain to right ankle especially with walking. She does not normally ambulate with a cane but is currently doing it due to pain. Denies any paresthesias. Denies head injury, loss consciousness. 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 She took an [id number] ibuprofen prior to arrival for pain control. No other injuries or complaints at this time. Denies any dizziness, lightheadedness, chest pain, shortness of breath prior to fall. - Related Data Home Medications Medication Instructions Recorded Confirmed Fexofenadine HCl [Sonia Allergy] 180 mg PO DAILY 08/13/23 08/13/23 guaiFENesin-DM 600/30MG [Mucinex 1 tab PO Q12HR 08/13/23 08/13/23 Dm] Previous Rx's Medication Instructions Recorded Aspirin [Adult Low Dose Aspirin EC] 81 mg PO DAILY #90 tab 08/15/23 Atorvastatin [Lipitor] 80 mg PO HS #60 tab 08/15/23 Lisinopril-Hctz 10-12.5 mg 1 each PO DAILY #60 tab 08/15/23 [Zestoretic 10-12.5] carvediloL [Coreg] 3.125 mg PO DAILY #60 tab 08/15/23 HYDROcodone/APAP 5-325MG [[place] 5] 1 each PO Q6HR PRN #12 tab 01/10/24 Allergies Allergy/AdvReac Type Severity Reaction Status Date / Time No Known Allergies Allergy Verified 01/10/24 13:44 Review of Systems ROS Statement: Those systems with pertinent positive or pertinent negative responses have been documented in the HPI. ROS Other: All systems not noted in ROS Statement are negative. Past Medical History Past Medical History: No Reported History History of Any Multi-Drug Resistant Organisms: None Reported Past Surgical History: No Surgical Hx Reported Past Psychological History: No Psychological Hx Reported Smoking Status: Former smoker Past Alcohol Use History: None Reported Past Drug Use History: None Reported General Exam Limitations: no limitations General appearance: alert, in no apparent distress Head exam: Present: atraumatic, normocephalic, normal inspection Respiratory exam: Present: normal lung sounds bilaterally. Absent: respiratory distress, wheezes, rales, rhonchi, stridor Cardiovascular Exam: Present: regular rate, normal rhythm, normal heart sounds. Absent: systolic murmur, diastolic murmur, rubs, gallop, clicks Extremities exam: Present: tenderness (Right lateral malleolus with ecchymosis and edema. Dorsalis pedis pulse 2+. Sensation intact. Ecchymosis and edema to second MTP joint.) Neurological exam: Present: alert, oriented X3, CN II-XII intact Skin exam: Present: warm, dry, intact, normal color. Absent: rash Course Vital Signs 01/10/24 01/10/24 01/10/24 13:39 13:44 16:02 Temperature 97.8 F 98.1 F Pulse Rate 80 80 Respiratory 16 99 H Rate Blood Pressure 93/61 119/69 106/68 O2 Sat by Pulse 98 99 Oximetry Procedures - Orthopedic Splinting/Casting Injury #1 Side: right Lower Extremity Injury Location: ankle Lower Extremity Immobilizer: posterior splint, stirrup splint Other Orthopedic Equipment: crutches Medical Decision Making - Medical Decision Making Was pt. sent in by a medical professional or institution (, [facility], [employer], urgent care, hospital, or senior care...) When possible be specific @ -No Did you speak to anyone other than the patient for history (EMS, parent, family, police, friend...)? What history was obtained from this source @ -No Did you review nursing and triage notes (agree or disagree)? Why? @ -I reviewed and agree with nursing and triage notes Were old charts reviewed (outside hosp., previous admission, EMS record, old EKG, old radiological studies, urgent care reports/EKG's, senior care records)? Report findings @ -No old charts were reviewed Differential Diagnosis (chest pain, altered mental status, abdominal pain women, abdominal pain men, vaginal bleeding, weakness, fever, dyspnea, syncope, headache, dizziness, GI bleed, back pain, seizure, CVA, palpatations, mental health, musculoskeletal)? @ -Differential Musculoskeletal: Muscular strain, contusion, ligament sprain, fracture, arthritis, septic arthritis, bursitis, cellulitis, muscle spasm, nerve compression, DVT, arterial occlusion, herpes zoster, electrolyte abnormality, tumor.... This is not meant to be in all inclusive list EKG interpreted by me (3pts min.). @ -None X-rays interpreted by me (1pt min.). @ -Right ankle x-ray interpreted me significant for distal fibular fracture with extension of the tibiotalar joint. CT interpreted by me (1pt min.). @ -None done U/S interpreted by me (1pt. min.). @ -None done What testing was considered but not performed or refused? (CT, X-rays, U/S, labs)? Why? @ -None What meds were considered but not given or refused? Why? @ -None Did you discuss the management of the patient with other professionals (professionals i.e. , PA, [employer], lab, RT, psych nurse, oncology social worker, head baggage porter, teacher, public service officer, tax manager cpa)? Give summary @ -No Was smoking cessation discussed for >3mins.? @ -No Was critical care preformed (if so, how long)? @ -No Were there social determinants of health that impacted care today? How? (Homelessness, low income, unemployed, alcoholism, drug addiction, transportation, low edu. Level, literacy, decrease access to med. care, residential, rehab)? @ -No Was there de-escalation of care discussed even if they declined (Discuss DNR or withdrawal of care, Hospice)? DNR status @ -No What co-morbidities impacted this encounter? (DM, HTN, Smoking, COPD, CAD, Cancer, CVA, ARF, Chemo, Hep., AIDS, mental health diagnosis, sleep apnea, morbid obesity)? @ -None Was patient admitted / discharged? Hospital course, mention meds given and route, prescriptions, significant lab abnormalities, going to OR and other pertinent info. @ -Discharge. 68-year-old female presenting to the ER with chief complaint of right ankle injury. History and physical exam completed. Vital stable. Significant edema and ecchymosis over the right lateral mallelous. Right LE neurovascular intact. Patient refused analgesic medication as she took an ibuprofen prior to arrival. X-rays obtained significant for a distal fibula f racture with extension to the tibiotalar joint. Results discussed with patient, all questions answered. Patient placed in a posterior and stirrup splint. Crutches prescribed. I advised nonweightbearing and [id number] Tylenol and Motrin for pain control. [place] prescribed for extreme pain. I advised follow-up with orthopedics, referral given. Strict return parameters discussed. Patient discharged stable condition with follow-up to orthopedics. Patient verbally expressed understanding and agreement with care plan. Case discussed with ED attending, Dr. Ma. Undiagnosed new problem with uncertain prognosis? @ -No Drug Therapy requiring intensive monitoring for toxicity (Heparin, Nitro, Insulin, Cardizem)? @ -No Were any procedures done? @ -Yes Diagnosis/symptom? @ -Distal fibular fracture Acute, or Chronic, or Acute on Chronic? @ -Acute Uncomplicated (without systemic symptoms) or Complicated (systemic symptoms)? @ -Uncomplicated Side effects of treatment? @ -No Exacerbation, Progression, or Severe Exacerbation? @ -No Poses a threat to life or bodily function? How? (Chest pain, [place], [place], pneumonia, PE, COPD, DKA, ARF, appy, cholecystitis, CVA, Diverticulitis, Homicidal, Suicidal, threat to staff... and all critical care pts) @ -No - Radiology Data Radiology results: report reviewed, image reviewed Disposition Clinical Impression: Fibula fracture Disposition: HOME SELF-CARE Condition: Stable Instructions (If sedation given, give patient instructions): Ankle Fracture (ED) Additional Instructions: Remain nonweightbearing. Take [id number] Tylenol and Motrin for pain control. Take [place] for extreme pain. Follow-up with orthopedics in next 1-2 days.. Return to the ER for any new or worsening concerns. Prescriptions: HYDROcodone/APAP 5-325MG [[place] 5] 1 each PO Q6HR PRN #12 tab PRN Reason: Pain Is patient prescribed a controlled substance at d/c from ED?: No Referrals: Shonda Ruiz NPC [REFERRING] - 1-2 days Meka Salazar DO [Doctor of Osteopathic Medicine] - 1-2 days Time of Disposition: 15:40
[2024-01-10 14:20] VITALS: PULSE 80
--- NOTE | 2024-01-10 15:06 | XR ---
EXAMINATION TYPE: XR ankle complete RT, XR foot complete RT DATE OF EXAM: 01/10/2024 2:58 PM CLINICAL INDICATION:Female, 68 years old with history of pain; [facility] COMPARISON: None TECHNIQUE: XR ankle complete RT, XR foot complete RT; ankle is imaged in frontal, lateral and obliqu e projections. FINDINGS/IMPRESSION: 1. Acute fracture of the distal fibula with extension into the joint tibiotalar. Mild soft tissue sw elling around the ankle. 2. The tibia and remainder of the osseous structures appear intact.
[2024-01-10 16:26] VITALS: BP 106/68; RESP 99; TEMP 98.1
== END 2024-01-10 16:02 | disposition home or self-care (01) ==
LOC: EC 13:30
DX: S82.401A Unspecified fracture of shaft of right fibula, initial encounter for closed fracture (principal); Z87.891 Personal history of nicotine dependence; W18.30XA Fall on same level, unspecified, initial encounter
CPT/HCPCS: 29515; 99283